=== PATIENT | male | born 2000 | race Hispanic/Latino ===

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

== ENCOUNTER 2024-09-28 11:23 | Emergency (ER) | payer SELFPAY ==
[~2024-09-28] VITALS: Ht 175.3 cm; Wt 65.8 kg
[2024-09-28 12:18] LABS: RAPID GROUP A STREP negative (NEGATIVE)
[2024-09-28 12:27] LABS: SARS-CoV-2, RNA, NAAT NEGATIVE SARS CoV-2 (NEGATIVE)
[2024-09-28 12:29] LABS: INFLUENZA TYPE A Negative For Type A (NEGATIVE); INFLUENZA TYPE B Negative For Type B (NEGATIVE)
--- NOTE | 2024-09-28 12:40 | ERN ---
General Chief Complaint: Sore Throat Stated Complaint: SORE THROAT Time Seen by MD: 11:33 Time Seen by Midlevel: 11:33 Source: patient History of Present Illness Initial Comments 23-year-old male presenting to the ER for evaluation of a sore throat. According to the patient he woke up with a slight sore throat and was sent by his employer to rule out an infection. The patient states he was no other complaints and his sore throat has already resolved. Allergies: Coded Allergies: No Known Drug Allergies (Unverified Allergy, Unknown, 09/28/24) Past Medical History Past Medical History: No Pertinent History Past Surgical History: None ROS Dictation CONSTITUTIONAL: Negative except for HPI HEAD/FACE: Negative except for HPI EENT: Negative except for HPI RESPIRATORY: Negative except for HPI GASTROINTESTINAL/ABDOMINAL: Negative except for HPI GENITOURINARY: Negative except for HPI MUSCULOSKELETAL: Negative except for HPI INTEGUMENTARY: Negative except for HPI NEUROLOGICAL/PSYCH: Negative except for HPI HEMATOLOGIC/LYMPHATIC: Negative except for HPI All Systems Negative, Except as noted above. 13 point review of systems assessed and all negative except for above. Physical Exam Physical Exam Dictation Vital Signs reviewed General Appearance: Alert, oriented x 3, no acute distress, well developed, nourished. Head and Face: non-traumatic. Eyes: PERRL, pink conjunctivas, eyelid no trauma, anterior chamber with arcus senilis. Ears: Pinnas intact and no signs of trauma or erythema ear canals clear and no discharge TM no erythema Nose: No discharge, no bleeding. Oropharynx: Mouth normal, tongue pink, pharynx clear,no erythema, tonsils no exudates, no abscesses noted, mucous membrane moist Neck: Supple, non-tender, no thyromegaly, no masses, no JVD, no bruits Breast:Deferred Chest:No tenderness, no crepitus, no paradoxical movement, no retractions Lungs:Clear, well-ventilated, symmetric, no rales, no wheezing, no rhonchi, no stridor, good breath sounds bilaterally Heart: Regular rate, regular rhythm, no murmur, no gallops Vascular: no peripheral edema, Abdomen: Soft, positive bowel sounds, nondistended, no guarding, nontender, no rebound, no masses no hepatomegaly, no splenomegaly, no Das's sign, no hernias. Rectal: Deferred Genital: Deferred Neurological: Normal speech, motor function intact, sensory function intact Musculoskeletal: Neck nontender, full range of motion, back nontender, full range of motion, Extremities: nontender, full range of motion Skin: Color pink, dry, no turgor, no rash, no lacerations, no abrasions, no contusions. Lymphatic: Deferred Results Laboratory and Microbiology Lab and Micro Result Laboratory Tests Test 09/28/24 12:00 Influenza Type A Antigen Negative For Type A Influenza Type B Antigen Negative For Type B SARS-CoV-2, RNA, NAAT NEGATIVE SARS CoV-2 Group A Streptococcus Rapid negative (NEGATIVE) Labs Reviewed?: Yes MDM MDM: Differential diagnosis: Pharyngitis, strep, viral illness There are no social concerns with this patient. Prescription drug management Prescriptions will include: None Medical management and examination interpretation discussions were had by me with other qualified healthcare professionals as indicated for the patient's care. ED Course Orders Procedure Category Date Status Time Influenza Type A & B, LAB 09/28/24 Complete Rapid 11:56 Covid Rna Naat LAB 09/28/24 Complete 11:56 Rapid (Group A Strep) LAB 09/28/24 Complete 11:56 Vital Signs Date Time Temp Pulse Resp B/P (MAP) Pulse Ox O2 Delivery O2 Flow Rate FiO2 09/28/24 11:30 97.7 65 14 107/62 100 Room Air* 0 21 09/28/24 11:26 97.7 63 14 98/58 100 Room Air 0 DX & DISP Disposition: Discharge Departure Impression: Primary Impression: Pharyngitis Condition: Stable Additional Instructions: You have tested negative for influenza a, influenza B, COVID-19, and strep pharyngitis. Referrals: SELF,REFERRAL (PCP) Time of Disposition: 12:44 I have reviewed the case, and I agree with, Diagnosis and Plan I performed the substantive portion of the visit. I have reviewed and personally made and approve the management plan that is documented in the note by myself or the CORAL. I acknowledge for responsibility for the patient's management plan. CURT DUPONT Sep 28, 2024 12:40
[2024-09-28 12:48] VITALS: BP 110/58; PULSE 61; RESP 14; TEMP 97.7; O2SAT 100
== END 2024-09-28 12:57 | disposition home or self-care (01) ==
LOC: EDH 11:23
DX: J02.9 Acute pharyngitis, unspecified (principal); Z20.822 Contact with and (suspected) exposure to COVID-19
CPT/HCPCS: 87635; 87804; 87880; 99283